=== PATIENT | male | born 1965 | race Caucasian/White ===

== ENCOUNTER 2017-09-06 10:34 | Emergency (ER) | payer OTHER ==
[2017-09-06 10:35] VITALS: BP 155/92; PULSE 87; RESP 14; TEMP 98.7; O2SAT 98
--- NOTE | 2017-09-06 11:18 | PD ---
HPI Chief Complaint: Abdominal Pain Time Seen by Provider: 11:17 Travel History International Travel<30 days: No Contact w/Intl Traveler<30days: No Traveled to known affect area: No History of Present Illness HPI 51-year-old male came to the emergency room with history of left lower quadrant pain. Patient speaks very little [place] and mostly [place]. With the medical [place]an known to me a history was obtained. Patient says the pain started last night and he was unable to sleep through the night. This morning he did have a bowel movement which was normal and no blood in his stool. No vomiting or nausea. Patient had something similar 1-year-old ago when he did go to a doctor but he does not know the diagnosis. Vital signs are stable. Patient is from [place] and is here on a job. No history of fever or chills. Patient looked uncomfortable. No radiation of the pain. The pain is persistently there but worse upon pushing. PFSH Past Medical History Narrative Medical List of his past medical, surgical, social and family history is reviewed from the nursing note. Social History Alcohol Use: Yes Tobacco Use: Yes Substance Use: No Allergies-Medications (Allergen,Severity, Reaction): Coded Allergies: No Known Allergies (Unverified , 09/06/17) Comments No known drug allergies. Reported Meds & Prescriptions Reported Meds & Active Scripts Active Ibuprofen 600 Mg Tab 600 Mg PO Q6H PRN Flagyl (Metronidazole) 250 Mg Tab 250 Mg PO TID 10 Days Ciprofloxacin (Ciprofloxacin HCl) 500 Mg Tab 500 Mg PO BID 10 Days Narrative Medication List of his home medications reviewed from the nursing note. Review of Systems Except as stated in HPI: all other systems reviewed are Neg Gastrointestinal: Positive: Abdominal Pain Physical Exam Narrative GENERAL: Awake, alert, moderate distress SKIN: Focused skin assessment warm/dry. HEAD: Atraumatic. Normocephalic. EYES: Pupils equal and round. No scleral icterus. No injection or drainage. ENT: No nasal bleeding or discharge. Mucous membranes pink and moist. NECK: Trachea midline. No JVD. CARDIOVASCULAR: Regular rate and rhythm. No murmur appreciated. RESPIRATORY: No accessory muscle use. Clear to auscultation. Breath sounds equal bilaterally. GASTROINTESTINAL: Significant tenderness in the left lower Quadrant with some localized guarding, nondistended, good bowel sounds. Hepatic and splenic margins not palpable. MUSCULOSKELETAL: No obvious deformities. No clubbing. No cyanosis. No edema. NEUROLOGICAL: Awake and alert. No obvious cranial nerve deficits. Motor grossly within normal limits. Normal speech. PSYCHIATRIC: Appropriate mood and affect; insight and judgment normal. Data Data Last Documented VS Vital Signs Date Time Temp Pulse Resp B/P (MAP) Pulse Ox O2 Delivery O2 Flow Rate FiO2 09/06/17 14:18 09/06/17 11:52 97 Room Air 09/06/17 10:35 98.7 87 14 Orders Orders Complete Blood Count With Diff (09/06/17 11:22) Comprehensive Metabolic Panel (09/06/17 11:22) Lipase (09/06/17 11:22) Urinalysis - C+S If Indicated (09/06/17 11:22) Ct Abd/Pel W Iv Contrast(Rout) (09/06/17 11:22) Iv Access Insert/Monitor (09/06/17 11:22) Ecg Monitoring (09/06/17 11:22) Oximetry (09/06/17 11:22) Ondansetron Inj (Zofran Inj) (09/06/17 11:30) Sodium Chlor 0.9% 1000 Ml Inj (Ns 1000 M (09/06/17 11:22) Sodium Chloride 0.9% Flush (Ns Flush) (09/06/17 11:30) Ketorolac Inj (Toradol Inj) (09/06/17 11:30) Iohexol 350 Inj (Omnipaque 350 Inj) (09/06/17 13:26) Ciprofloxacin (Cipro) (09/06/17 14:00) Metronidazole (Flagyl) (09/06/17 14:00) Ed Discharge Order (09/06/17 13:49) Labs Laboratory Tests Test 09/06/17 12:00 White Blood Count 9.5 TH/MM3 Red Blood Count 4.76 MIL/MM3 Hemoglobin 14.6 GM/DL Hematocrit 42.8 % Mean Corpuscular Volume 89.9 FL Mean Corpuscular Hemoglobin 30.8 PG Mean Corpuscular Hemoglobin Concent 34.2 % Red Cell Distribution Width 12.6 % Platelet Count 180 TH/MM3 Mean Platelet Volume 10.8 FL Neutrophils (%) (Auto) 73.1 % Lymphocytes (%) (Auto) 18.1 % Monocytes (%) (Auto) 7.6 % Eosinophils (%) (Auto) 0.8 % Basophils (%) (Auto) 0.4 % Neutrophils # (Auto) 6.9 TH/MM3 Lymphocytes # (Auto) 1.7 TH/MM3 Monocytes # (Auto) 0.7 TH/MM3 Eosinophils # (Auto) 0.1 TH/MM3 Basophils # (Auto) 0.0 TH/MM3 CBC Comment DIFF FINAL Differential Comment Urine Color LIGHT-YELLOW Urine Turbidity CLEAR Urine pH 6.5 Urine Specific [place] 1.013 Urine Protein NEG mg/dL Urine Glucose (UA) NEG mg/dL Urine Ketones NEG mg/dL Urine Occult Blood SMALL Urine Nitrite NEG Urine Bilirubin NEG Urine Urobilinogen LESS THAN 2.0 MG/DL Urine Leukocyte Esterase NEG Urine RBC 1 /hpf Urine WBC LESS THAN 1 /hpf Urine Mucus FEW /lpf Microscopic Urinalysis Comment CULT NOT INDICATED Blood Urea Nitrogen 13 MG/DL Creatinine 0.79 MG/DL Random Glucose 85 MG/DL Total Protein 7.6 GM/DL Albumin 3.9 GM/DL Calcium Level 9.5 MG/DL Alkaline Phosphatase 83 U/L Aspartate Amino Transf (AST/SGOT) 31 U/L Alanine Aminotransferase (ALT/SGPT) 53 U/L Total Bilirubin 0.7 MG/DL Sodium Level 138 MEQ/L Potassium Level 4.0 MEQ/L Chloride Level 102 MEQ/L Carbon Dioxide Level 27.1 MEQ/L Anion Gap 9 MEQ/L Estimat Glomerular Filtration Rate 104 ML/MIN Lipase 137 U/L [facility] Medical Decision Making Medical Screen Exam Complete: Yes Emergency Medical Condition: Yes Medical Record Reviewed: Yes Differential Diagnosis Acute diverticulitis, renal colic Narrative Course 2:29 PM blood test results were back and within normal limit. CT scan was done which shows stranding and possible colitis as per the radiologist. No abscess or perforation. However given his symptoms and physical exam I has started him on Ciprofloxacin and Flagyl and he has been given a dose here. Patient will be discharged home on prescription and instructions. Procedures EKG Prior to Arrival: No Diagnosis Primary Impression: Diverticulitis Additional Impression: Abdominal pain Qualified Codes: R10.32 - Left lower quadrant pain Referrals: Primary Care Physician Additional Instructions: please return to the ER if the condition worsens or any other new concerns. Take the medication as per the prescription direction. Take clear liquid diet for next 48 hours. He can take ibuprofen for the pain in the meanwhile. Do not take the medication empty stomach. Med/Other Pt SpecificInfo: Prescription(s) given Scripts Ibuprofen (Ibuprofen) 600 Mg Tab 600 MG PO Q6H Y for Pain/Inflammation, #40 TAB 0 Refills Prov: Suzi Pace MD 09/06/17 Metronidazole (Flagyl) 250 Mg Tab 250 MG PO TID for Infection for 10 Days, TAB 0 Refills Prov: Suzi Pace MD 09/06/17 Ciprofloxacin (Ciprofloxacin) 500 Mg Tab 500 MG PO BID for Infection for 10 Days, #20 TAB 0 Refills Prov: Suzi Pace MD 09/06/17 Disposition: 01 DISCHARGE HOME Condition: Stable Suzi Pace MD Sep 06, 2017 11:18
[2017-09-06] MEDS ORDERED: SODIUM CHLOR 0.9% 1000 ML INJ 1,000 ML IV SCH (11:22)
[2017-09-06] MEDS ORDERED: SODIUM CHLORIDE 0.9% FLUSH 10 ML FLUSH IV FLUSH PRN (11:30)
[2017-09-06] MEDS ORDERED: ONDANSETRON HCL 4 MG/2 ML VIAL IVP ONE (11:30)
[2017-09-06] MEDS ORDERED: KETOROLAC TROMETHAMINE 30 MG/ML (IVP) VIAL IVP ONE (11:30)
[2017-09-06 11:52] VITALS: O2SAT 97
[2017-09-06 12:23] LABS: AUTOMATED NEUTROPHIL # 6.9 TH/MM3 (1.8-7.7); BASOPHIL % 0.4 % (0.0-2.0); EOSINOPHIL # 0.1 TH/MM3 (0-0.4); EOSINOPHIL % 0.8 % (0.0-4.0); HEMATOCRIT 42.8 % (39.0-51.0); HEMOGLOBIN 14.6 GM/DL (13.0-17.0); LYMPH % 18.1 % (9.0-44.0); LYMPHOCYTE # 1.7 TH/MM3 (1.0-4.8); MEAN CELL VOLUME 89.9 FL (80.0-100.0); MEAN CORPUSCULAR HEMOGLOBIN 30.8 PG (27.0-34.0); MEAN CORPUSCULAR HGB CONC 34.2 % (32.0-36.0); MEAN PLATELET VOLUME 10.8 FL (7.0-11.0); MONO % 7.6 % (0.0-8.0); MONOCYTE # 0.7 TH/MM3 (0-0.9); NEUT % 73.1 % (16.0-70.0); PLATELET COUNT 180 TH/MM3 (150-450); RED BLOOD COUNT 4.76 MIL/MM3 (4.50-5.90); RED CELL DISTRIBUTION WIDTH 12.6 % (11.6-17.2); WHITE BLOOD COUNT 9.5 TH/MM3 (4.0-11.0)
[2017-09-06 12:31] LABS: BILIRUBIN, URINE NEG (NEG); BLOOD, URINE SMALL (NEG); GLUCOSE,URINE NEG (NEG); KETONE, URINE NEG (NEG); MUCUS URINE FEW /lpf (OCC); NITRITE,URINE NEG (NEG); PH, URINE 6.5 (5.0-8.5); URINE COLOR LIGHT-YELLOW (YELLW/STRAW); URINE LEUKOCYTE ESTERASE NEG (NEG)
[2017-09-06 12:40] LABS: ALBUMIN 3.9 GM/DL (3.4-5.0); ALT (GPT) 53 U/L (12-78); AST (GOT) 31 U/L (15-37); BICARBONATE 27.1 MEQ/L (21.0-32.0); BLOOD UREA NITROGEN 13 MG/DL (7-18); CALCIUM 9.5 MG/DL (8.5-10.1); CHLORIDE 102 MEQ/L (98-107); CREATININE 0.79 MG/DL (0.60-1.30); GLOMERULAR FILTRATION RATE 104 ML/MIN (>89); GLUCOSE,RANDOM 85 MG/DL (74-106); LIPASE 137 U/L (73-393); SODIUM (NA) 138 MEQ/L (136-145)
[2017-09-06 12:42] LABS: ALKALINE PHOSPHATASE 83 U/L (45-117); TOTAL BILIRUBIN ADULT 0.7 MG/DL (0.2-1.0); TOTAL PROTEIN 7.6 GM/DL (6.4-8.2)
[2017-09-06] MEDS ORDERED: IOHEXOL 350 MG/ML 10 ML VIAL (for RAD DIAG) IVCONTRAST ONE (13:26)
--- NOTE | 2017-09-06 13:33 | RADRPT ---
EXAM DATE/TIME: 09/06/2017 13:06 [facility] COMPARISON: No previous studies available for comparison. INDICATIONS : Left sided abdominal pain IV CONTRAST: 97 cc Omnipaque 350 (iohexol) IV ORAL CONTRAST: No oral contrast ingested. RADIATION DOSE: 6.64 CTDIvol (mGy) MEDICAL HISTORY : None SURGICAL HISTORY : None. ENCOUNTER: Initial ACUITY: 2 days PAIN SCALE: 6/10 LOCATION: Left abdominal TECHNIQUE: Volumetric scanning of the abdomen and pelvis was performed. Using automated exposure control and ad justment of the mA and/or kV according to patient size, radiation dose was kept as low as reasonably achievable to obtain optimal diagnostic quality images. DICOM format image data is available electro nically for review and comparison. FINDINGS: LOWER LUNGS: The visualized lower lungs are clear. LIVER: Homogeneous density without lesion. There is no dilation of the biliary tree. No calcified gallston es. SPLEEN: Normal size without lesion. PANCREAS: Within normal limits. KIDNEYS: Normal in size and shape. There is no mass, stone or hydronephrosis. Bilateral renal cysts are noted . There is a 2.8 cm cyst in the mid to upper pole right kidney. A 2.1 cm cyst is identified in the mi dpole the left kidney. ADRENAL GLANDS: Within normal limits. VASCULAR: There is no aortic aneurysm. BOWEL/MESENTERY: The colon is collapsed but demonstrates mucosal stratification and wall edema. There are no pericolon ic inflammatory changes. There are no abnormal fluid collections. ABDOMINAL WALL: Within normal limits. RETROPERITONEUM: There is no lymphadenopathy. BLADDER: No wall thickening or mass. REPRODUCTIVE: Within normal limits. INGUINAL: There is no lymphadenopathy or hernia. MUSCULOSKELETAL: Within normal limits for patient age. CONCLUSION: 1. Mucosal stratification and wall edema identified throughout the colon characteristic of low-grade colitis. 2. No evidence of ileus, pericolonic inflammation or abnormal fluid collections. 3. Bilateral renal cysts. 4. Otherwise normal exam. José Antonio Dennis MD on September 06, 2017 at 13:26 Board Certified Radiologist. This report was verified electronically.
[2017-09-06] MEDS ORDERED: CIPROFLOXACIN 500 MG TAB PO ONE (14:00)
[2017-09-06] MEDS ORDERED: metroNIDAZOLE 500 MG TAB PO ONE (14:00)
[2017-09-06] MEDS ORDERED: CIPR500T2 PO (14:00)
[2017-09-06] MEDS ORDERED: IBUP-232 PO (14:00)
[2017-09-06] MEDS ORDERED: METR250 PO (14:00)
== END 2017-09-06 14:33 | disposition home or self-care (01) ==
LOC: NEPD 10:34
DX: K57.92 Diverticulitis of intestine, part unspecified, without perforation or abscess without bleeding (principal); R10.32 Left lower quadrant pain; Z72.0 Tobacco use
CPT/HCPCS: 74177; 80053; 81001; 83690; 85025; 96361; 96374; 96375; 99284; J1885; J2405; J7030; Q9967